=== PATIENT | female | born 1970 | race Caucasian/White ===

== ENCOUNTER 2016-08-11 14:38 | Emergency (ER) | payer OTHER | END 2016-08-11 15:30 | disposition home or self-care (01) | LOC: ER 14:38 | DX: S29.011A Strain of muscle and tendon of front wall of thorax, initial encounter (principal); V49.9XXA Car occupant (driver) (passenger) injured in unspecified traffic accident, initial encounter | CPT/HCPCS: 71020; 93005; 99284; A9270-GY ==